=== PATIENT | male | born 1985 | race African-American/Black ===

== ENCOUNTER 2018-02-05 10:58 | Emergency (ER) | payer SELFPAY ==
[~2018-02-05] VITALS: Ht 172.7 cm; Wt 100.0 kg
[2018-02-05] MEDS ORDERED: ONDANSETRON HCL 4MG/2ML VIAL ONE (12:21)
[2018-02-05 12:30] LABS: BASOPHILS % 0.8 % (0.0-2.0); EOSINOPHILS % 1.7 % (0.0-5.0); HEMOGLOBIN. 16.3 g/dL (14.0-18.0); LYMPHOCYTES % 27.3 % (20.0-50.0); MEAN CORPUSCULAR HEMOGLOBIN 30.7 pg (28.0-32.0); MEAN CORPUSCULAR VOLUME 90.7 fL (80.0-94.0); MEAN PLATELET VOLUME 9.3 fl (7.4-10.4); MONOCYTES % 6.4 % (2.0-8.0); NEUTROPHILS % 63.8 % (40.0-76.0); PLATELET 260 x1000/uL (130-400); RED CELL DISTRIBUTION WIDTH 14.8 % (11.6-14.6)
[2018-02-05] MEDS ORDERED: FAMOTIDINE 20MG/2ML VIAL IV ONE (12:30)
[2018-02-05] MEDS ORDERED: SODIUM CHLORIDE 0.9% 1,000 ML IV ONE (12:30)
[2018-02-05] MEDS ORDERED: MORPHINE SULFATE 4 MG/ML CPJ (NOT FOR IM USE) IV ONE (12:30)
[2018-02-05] MEDS ORDERED: KETOROLAC 30MG/ML VIAL IV ONE (12:30)
[2018-02-05] MEDS ORDERED: ONDANSETRON HCL 4MG/2ML VIAL IV ONE (12:30)
[2018-02-05 12:31] LABS: CHLORIDE 107 mEq/L (98-107)
[2018-02-05 12:36] LABS: ETHANOL BLOOD < 10 mg/dL
[2018-02-05] MEDS ORDERED: DIPHENHYDRAMINE 50MG/ML VIAL IV NR (15:00)
[2018-02-05] MEDS ORDERED: METOCLOPRAMIDE HCL 10MG/2ML VIAL IV NR (15:00)
[2018-02-05] MEDS ORDERED: PIPERACILLIN/TAZ 3.375G PREMIX 50 ML IV NR (15:00)
[2018-02-05] MEDS ORDERED: HALOPERIDOL LACTATE 5MG/ML VIAL IM PRN (16:45)
[2018-02-05] MEDS ORDERED: GUAIFENESIN 200MG/10ML SUGAR FREE UDC PO PRN (16:45)
[2018-02-05] MEDS ORDERED: ONDANSETRON HCL 4MG/2ML VIAL IV PRN (16:45)
[2018-02-05] MEDS ORDERED: NITROGLYCERIN 0.4MG TABLET SL SL PRN (16:45)
[2018-02-05] MEDS ORDERED: LORAZEPAM 0.5MG TABLET PO PRN (16:45)
[2018-02-05] MEDS ORDERED: DOCUSATE SODIUM 100MG CAPSULE PO PRN (16:45)
[2018-02-05] MEDS ORDERED: MAGNESIUM/ALUMINUM HYDROXIDE/SIMETHICONE 30ML UDC PO PRN (16:45)
[2018-02-05] MEDS ORDERED: ACETAMINOPHEN 325MG TABLET PO PRN (16:45)
[2018-02-05] MEDS ORDERED: IPRATROPIUM/ALBUTEROL 0.5-3(2.5)MG/3ML NEB INH PRN (16:45)
[2018-02-05] MEDS ORDERED: CLONIDINE 0.1MG TABLET PO PRN (16:45)
[2018-02-05] MEDS ORDERED: KETOROLAC 15MG/ML VIAL IV PRN (17:00)
[2018-02-05] MEDS ORDERED: LEVOFLOXACIN 500MG PREMIX 100 ML IV NR (18:00)
[2018-02-05] MEDS ORDERED: ZOLPIDEM TARTRATE 5MG TABLET PO PRN (21:00)
[2018-02-05] MEDS ORDERED: NA PHOS,M-B/NA PHOS,DI-BA ENEMA 118ML PR PRN (21:00)
[2018-02-05 21:40] VITALS: BP 144/76
[2018-02-05] MEDS ORDERED: METRONIDAZOLE 500 MG PREMIX 100 ML IV SCH (22:00)
[2018-02-06] MEDS ORDERED: PANTOPRAZOLE SODIUM 40 MG/VIAL IV SCH (09:00)
[2018-02-06] MEDS ORDERED: LEVOFLOXACIN 500MG PREMIX 100 ML IV SCH (18:00)
== END 2018-02-05 22:20 | disposition left against medical advice (07) ==
LOC: ER 10:58 → EDBEDREQTM 16:26 → EDBEDREQ 16:26 → CANRESERV 21:16 → ENRESERV 21:16 → ER 22:20 → CANBEDREQ 02-07 12:10
DX: K52.9 Noninfective gastroenteritis and colitis, unspecified (principal); R00.1 Bradycardia, unspecified; K57.30 Diverticulosis of large intestine without perforation or abscess without bleeding; F17.200 Nicotine dependence, unspecified, uncomplicated; Z93.3 Colostomy status
CPT/HCPCS: 36415; 71045; 74176; 80053; 80061; 83036; 83690; 84484; 85025; 93005; 96365; 96368; 96375; 96376; 99285; G0482; J1200; J1885; J1956; J2270; J2405; J2543; J2765; J3490; J7030; Z7610

== ENCOUNTER 2018-03-25 12:33 | Emergency (ER) | payer SELFPAY ==
[~2018-03-25] VITALS: Ht 185.4 cm; Wt 100.0 kg
[2018-03-25] MEDS ORDERED: SODIUM CHLORIDE 0.9% 1,000 ML IV ONE ×2 (12:39→17:00)
[2018-03-25] MEDS ORDERED: ONDANSETRON 4MG ODT PO ONE (13:00)
[2018-03-25 14:01] LABS: BASOPHILS % 0.8 % (0.0-2.0); EOSINOPHILS % 1.7 % (0.0-5.0); HEMATOCRIT. 48.6 % (42.0-52.0); HEMOGLOBIN. 16.7 g/dL (14.0-18.0); LYMPHOCYTES % 39.5 % (20.0-50.0); MEAN CORPUSCULAR HEMOGLOBIN 31.6 pg (28.0-32.0); MEAN CORPUSCULAR VOLUME 91.9 fL (80.0-94.0); MEAN PLATELET VOLUME 9.5 fl (7.4-10.4); MONOCYTES % 8.2 % (2.0-8.0); NEUTROPHILS % 49.8 % (40.0-76.0); PLATELET 252 x1000/uL (130-400); RED BLOOD CELL COUNT 5.29 mill/uL (4.7-6.1); RED CELL DISTRIBUTION WIDTH 14.9 % (11.6-14.6)
[2018-03-25 14:08] LABS: PROTHROMBIN TIME 10.2 sec (9.1-11.1)
[2018-03-25 14:30] LABS: CHLORIDE 109 mEq/L (98-107)
[2018-03-25] MEDS ORDERED: MORPHINE SULFATE 4 MG/ML CPJ (NOT FOR IM USE) IV ONE ×2 (14:30→17:30)
[2018-03-25] MEDS ORDERED: ONDANSETRON HCL 4MG/2ML VIAL IV ONE (14:30)
[2018-03-25] MEDS ORDERED: METOCLOPRAMIDE HCL 10MG/2ML VIAL IV ONE (15:30)
[2018-03-25] MEDS ORDERED: KETOROLAC 15MG/ML VIAL IV ONE (17:00)
[2018-03-25] MEDS ORDERED: FAMOTIDINE 20MG TABLET PO ONE (19:15)
[2018-03-25 23:00] VITALS: BP 147/78
== END 2018-03-25 23:16 | disposition home or self-care (01) ==
LOC: ER 12:54
DX: R10.32 Left lower quadrant pain (principal); R11.2 Nausea with vomiting, unspecified; R00.1 Bradycardia, unspecified; K57.92 Diverticulitis of intestine, part unspecified, without perforation or abscess without bleeding; F17.200 Nicotine dependence, unspecified, uncomplicated; F12.10 Cannabis abuse, uncomplicated; Z93.3 Colostomy status; Z98.890 Other specified postprocedural states
CPT/HCPCS: 36415; 74176; 80053; 83690; 85025; 85610; 93005; 96361; 96374; 96375; 96376; 99285; J1885; J2270; J2405; J2765; J7030; Q0162; Z7610

== ENCOUNTER 2018-04-20 19:01 | Emergency (ER) | payer SELFPAY ==
[~2018-04-20] VITALS: Ht 180.3 cm; Wt 109.0 kg
[2018-04-20] MEDS ORDERED: KETOROLAC 30MG/ML VIAL IV STA (19:51)
[2018-04-20] MEDS ORDERED: ONDANSETRON HCL 4MG/2ML INJ IV STA (19:51)
[2018-04-20] MEDS ORDERED: MORPHINE SULFATE 4 MG/ML CPJ (NOT FOR IM USE) IV STA (19:51)
[2018-04-20] MEDS ORDERED: SODIUM CHLORIDE 0.9% 1,000 ML IV ONE (19:51)
[2018-04-20] MEDS ORDERED: FAMOTIDINE 20MG/2ML VIAL IV STA (19:51)
[2018-04-20 20:32] LABS: BASOPHILS % 0.6 % (0.0-2.0); EOSINOPHILS % 0.4 % (0.0-5.0); HEMATOCRIT. 50.1 % (42.0-52.0); HEMOGLOBIN. 16.9 g/dL (14.0-18.0); LYMPHOCYTES % 16.9 % (20.0-50.0); MEAN CORPUSCULAR HEMOGLOBIN 31.2 pg (28.0-32.0); MEAN CORPUSCULAR VOLUME 92.3 fL (80.0-94.0); MEAN PLATELET VOLUME 9.5 fl (7.4-10.4); MONOCYTES % 5.1 % (2.0-8.0); PLATELET 244 x1000/uL (130-400); RED BLOOD CELL COUNT 5.43 mill/uL (4.7-6.1); RED CELL DISTRIBUTION WIDTH 14.5 % (11.6-14.6)
[2018-04-20 20:36] LABS: CHLORIDE 105 mEq/L (98-107)
[2018-04-20 20:37] LABS: PROTHROMBIN TIME 10.4 sec (9.1-11.1)
[2018-04-20 20:42] LABS: ETHANOL BLOOD < 10 mg/dL
[2018-04-21] MEDS ORDERED: SODIUM CHLORIDE 0.9% 1,000 ML IV ONE (00:23)
[2018-04-21] MEDS ORDERED: ONDANSETRON HCL 4MG/2ML INJ IV ONE ×2 (00:30)
[2018-04-21] MEDS ORDERED: MORPHINE SULFATE 4 MG/ML CPJ (NOT FOR IM USE) IV ONE (00:30)
[2018-04-21 00:50] LABS: CLARITY URINE CLEAR (CLEAR); COLOR URINE YELLOW (YELLOW); KETONES URINE 2+ (NEGATIVE); LEUKOCYTE ESTERASE URINE NEGATIVE (NEGATIVE); NITRITE URINE NEGATIVE (NEGATIVE); OCCULT BLOOD URINE NEGATIVE (NEGATIVE); PH URINE 6.5 (4.5-8.0); PROTEIN URINE TRACE (NEGATIVE); SPECIFIC GRAVITY URINE 1.026 (1.005-1.030)
[2018-04-21 02:07] VITALS: BP 140/80
== END 2018-04-21 02:08 | disposition home or self-care (01) ==
LOC: ER 19:01 → CANBEDREQ 04-21 07:18
DX: K29.70 Gastritis, unspecified, without bleeding (principal); K44.9 Diaphragmatic hernia without obstruction or gangrene; R03.0 Elevated blood-pressure reading, without diagnosis of hypertension; R00.1 Bradycardia, unspecified
CPT/HCPCS: 36415; 71045; 74176; 80053; 81003; 83690; 84484; 85025; 85610; 93005; 96361; 96374; 96375; 96376; 99285; G0482; J1885; J2270; J2405; J3490; J7030; Z7610

== ENCOUNTER 2018-05-19 08:54 | Emergency (ER) | payer SELFPAY ==
[~2018-05-19] VITALS: Ht 180.3 cm; Wt 96.0 kg
[2018-05-19] MEDS ORDERED: MORPHINE SULFATE 4 MG/ML CPJ (NOT FOR IM USE) IV STA (10:16)
[2018-05-19] MEDS ORDERED: ONDANSETRON HCL 4MG/2ML INJ IV STA (10:16)
[2018-05-19] MEDS ORDERED: SODIUM CHLORIDE 0.9% 1,000 ML IV ONE (10:16)
[2018-05-19 10:59] LABS: BASOPHILS % 0.7 % (0.0-2.0); EOSINOPHILS % 0.8 % (0.0-5.0); HEMATOCRIT. 47.8 % (42.0-52.0); HEMOGLOBIN. 16.1 g/dL (14.0-18.0); LYMPHOCYTES % 16.6 % (20.0-50.0); MEAN CORPUSCULAR HEMOGLOBIN 30.8 pg (28.0-32.0); MEAN CORPUSCULAR VOLUME 91.3 fL (80.0-94.0); MONOCYTES % 6.2 % (2.0-8.0); NEUTROPHILS % 75.7 % (40.0-76.0); PLATELET 258 x1000/uL (130-400); RED BLOOD CELL COUNT 5.23 mill/uL (4.7-6.1); RED CELL DISTRIBUTION WIDTH 13.8 % (11.6-14.6)
[2018-05-19 11:08] LABS: INR 1.1; PROTHROMBIN TIME 10.6 sec (9.1-11.1)
[2018-05-19 11:11] LABS: CHLORIDE 107 mEq/L (98-107); ETHANOL BLOOD < 10 mg/dL
[2018-05-19] MEDS ORDERED: KETOROLAC 30MG/ML VIAL IV ONE (11:30)
[2018-05-19] MEDS ORDERED: MORPHINE SULFATE 4 MG/ML CPJ (NOT FOR IM USE) IV ONE (12:30)
[2018-05-19] MEDS ORDERED: FAMOTIDINE 20MG/2ML VIAL IV ONE (12:30)
[2018-05-19] MEDS ORDERED: METOCLOPRAMIDE HCL 10MG/2ML VIAL IV ONE (12:30)
[2018-05-19 15:04] VITALS: BP 135/84
== END 2018-05-19 15:07 | disposition home or self-care (01) ==
LOC: ER 09:13
DX: R10.0 Acute abdomen (principal); R11.2 Nausea with vomiting, unspecified; Z87.19 Personal history of other diseases of the digestive system; F12.90 Cannabis use, unspecified, uncomplicated; Z72.0 Tobacco use
CPT/HCPCS: 36415; 74176; 80053; 83690; 85025; 85610; 96361; 96374; 96375; 96376; 99285; G0482; J1885; J2270; J2405; J2765; J3490; J7030